=== PATIENT | male | born 1980 | race African-American/Black ===

== ENCOUNTER 2019-06-04 15:47 | Emergency (ER) | payer MEDICAID ==
[~2019-06-04] VITALS: Ht 167.6 cm; Wt 86.0 kg
[2019-06-04] MEDS ORDERED: BACITRACIN ZINC OINT UDPKT TOP ONE (18:00)
[2019-06-04] MEDS ORDERED: IBUPROFEN 600MG TABLET PO ONE (18:00)
[2019-06-04] MEDS ORDERED: LIDOCAINE 1%/EPI 1:100,000 10 ML VIAL IJ ONE (18:00)
[2019-06-04] MEDS ORDERED: ACETAMINOPHEN 325MG TABLET PO ONE (18:00)
[2019-06-04] MEDS ORDERED: LIDOCAINE HCL/EPINEPHRINE 1%-EPI 1:100,000 20 ML VIAL INFIL SCH (18:26)
[2019-06-04 19:32] VITALS: BP 124/77
== END 2019-06-04 19:34 | disposition home or self-care (01) ==
LOC: ER 15:47
DX: L02.212 Cutaneous abscess of back [any part, except buttock and flank] (principal); L02.811 Cutaneous abscess of head [any part, except face]; L73.9 Follicular disorder, unspecified
CPT/HCPCS: 10060; 99284; A4217; J3490; Z7610